=== PATIENT | female | born 1965 | race Caucasian/White ===

== ENCOUNTER 2017-10-01 17:03 | Emergency (ER) | payer OTHER ==
[2017-10-01 17:20] VITALS: BP 120/88; PULSE 102; TEMP 98.5; BMI 19.2
--- NOTE | 2017-10-01 17:38 | PDOC ---
History of Present Illness - General History Source: Patient Exam Limitations: No Limitations - History of Present Illness Initial Comments: 10/01/17 18:08 The patient is a 51 year old female, with no significant past medical history on an antiviral (Valtrex), who presents to the emergency department s/p squirrel bite with, a puncture to the left 4th digit and associated pain. As per patient, she saw a squirrel in her backyard which she assumed as . She poked up a stick multiple times and it did not move. She went to grape picker the squirrel to place it into a box when the squirrel bit her finger through her glove. She reports the squirrel latched onto her finger before she was capable of getting it off. She reports washing the finger with soap and water profusely prior to coming to the ED. She reports her pain to have been slightly alleviated from the initial bite. She is unaware of her last tetanus shot. She denies recent fevers, chills, headache or dizziness. She denies recent nausea, vomit, diarrhea or constipation. She denies recent dysuria, frequency, urgency or hematuria. She denies recent chest pain or shortness of breath. Allergies: Sulfa Past surgical history: None reported. Social history: Smoker. Social EtOH use. Denies recreational drug use. <Isabel Chan - Last Filed: 10/01/17 18:08> <Michael Rubio - Last Filed: 10/03/17 09:47> - General Chief Complaint: Bite Stated Complaint: SQUIRREL BITE Time Seen by Provider: 10/01/17 17:25 Past History <Isabel Chan - Last Filed: 10/01/17 18:08> - Past Medical History COPD: No Other medical history: ENDOMETRIOSIS OSTEOPENIA OSTEOPOROSIS - Surgical History Appendectomy: Yes Cholecystectomy: Yes - Immunization History Immunization Up to Date: No - Suicide/Smoking/Psychosocial Hx Smoking History: Current every day smoker Have you smoked in the past 12 months: Yes Number of Cigarettes Smoked Daily: 20 Information on smoking cessation initiated: Yes 'Breaking Loose' booklet given: 10/01/17 Hx Alcohol Use: Yes (SOCIAL) Drug/Substance Use Hx: No Substance Use Type: Alcohol <Michael Rubio - Last Filed: 10/03/17 09:47> - Past Medical History Allergies/Adverse Reactions: Allergies Allergy/AdvReac Type Severity Reaction Status Date / Time Sulfa (Sulfonamide Allergy Intermediate Hives Verified 10/01/17 17:11 Antibiotics) Home Medications: Ambulatory Orders Cephalexin Monohydrate [Keflex] 500 mg PO Q6H #30 capsule 10/01/17 Valacyclovir HCl [Valtrex] 500 mg PO DAILY 10/01/17 Review of Systems - Review of Systems Able to Perform ROS?: Yes Comments:: 10/01/17 18:09 CONSTITUTIONAL: Absent: fever, no chills, no fatigue EYES: Absent: visual changes ENT: Absent: ear pain, no sore throat CARDIOVASCULAR: Absent: chest pain, no palpitations RESPIRATORY: Absent: cough, no SOB GI: Absent: abdominal pain, no nausea, no vomiting, no constipation, no diarrhea GENITOURINARY: Absent: dysuria, no frequency, no hematuria MUSKULOSKELETAL: Absent: back pain, no arthralgia, no myalgia SKIN: Present: Puncture to the left hand 4th digit. Absent: rash NEURO: Absent: headache <Isabel Chan - Last Filed: 10/01/17 18:08> *Physical Exam - Vital Signs Last Vital Signs Temp Pulse Resp BP Pulse Ox 98.5 F 102 H 16 120/88 97 10/01/17 17:05 10/01/17 17:05 10/01/17 17:05 10/01/17 17:05 10/01/17 17:05 <Isabel Chan - Last Filed: 10/01/17 18:08> - Vital Signs Last Vital Signs Temp Pulse Resp BP Pulse Ox 98.5 F 102 H 16 120/88 97 10/01/17 17:05 10/01/17 17:05 10/01/17 17:05 10/01/17 17:05 10/01/17 17:05 <Michael Rubio - Last Filed: 10/03/17 09:47> Medical Decision Making - Medical Decision Making 10/01/17 17:38 Patient found what she thought was a squirrel in her yard, and when she tried to remove it, it bit her finger. Small puncture wound was noted the radial aspect of the PIP joint. There was no swelling erythema or inflammation present. There was full range of motion. There was no distal numbness tingling pain or weakness of the finger. The wound was extensively scrubbed with soap and water, then with normal saline , and bacitracin was applied with a Band-Aid. The finger was splinted to prevent excessive movement and minimize the chance of infection Tetanus immunization was administered. According to literature from the health department, rabies prophylaxis is not indicated. However, an attempt was made to contact the health department in [phone]. There were recorded instructions that if this was an animal bite, to fax the information [phone], which was done. There was no option to leave a detailed message or to speak to someone military professional. The patient contacted the local police, explained the incident, and asked them to find the animal and take it to be appropriate facility for analysis. 10/01/17 17:43 Although the puncture appears to be minor, its location of her finger joint suggest that antibiotic be prescribed. First dose given and a prescription sent to her pharmacy. She will follow up with the health Department as directed. Fully ambulatory in no pain or other distress upon discharge to follow-up as directed. <Michael Rubio - Last Filed: 10/03/17 09:47> *DC/Admit/Observation/Transfer - Attestations Scribe Attestion: 10/01/17 18:09 Documentation prepared by Isabel Chan, acting as medical billing associate for Michael Pond MD. <Isabel Chan - Last Filed: 10/01/17 18:08> <Michael Rubio - Last Filed: 10/03/17 09:47> Diagnosis at time of Disposition: Animal bite wound - Discharge Dispostion Disposition: HOME Condition at time of disposition: Stable - Prescriptions Prescriptions: Cephalexin Monohydrate [Keflex] 500 mg PO Q6H #30 capsule
[2017-10-01] MEDS ORDERED: CEPHALEXIN MONOHYDRATE 500 MG CAPSULE (UD) PO ONE (18:25)
[2017-10-01] MEDS ORDERED: DIPHTH,PERTUSS(ACELL),TET 0.5 ML DISP.SYRIN IM ONE (18:25)
[2017-10-01] MEDS ORDERED: CEPHALEXIN MONOHYDRATE 500 MG CAPSULE (UD) ONE (18:50)
== END 2017-10-01 19:10 | disposition home or self-care (01) ==
LOC: FER 17:03
PROC: 3E0234Z Introduction of Serum, Toxoid and Vaccine into Muscle, Percutaneous Approach (ICD-10-PCS; principal; 2017-10-01)
DX: S61.255A Open bite of left ring finger without damage to nail, initial encounter (principal); W53.21XA Bitten by squirrel, initial encounter; Y93.89 Activity, other specified; Y92.007 Garden or yard of unspecified non-institutional (private) residence as the place of occurrence of the external cause
CPT/HCPCS: 90715; 99281-25

== ENCOUNTER 2018-05-29 10:06 | Emergency (ER) | payer OTHER ==
[2018-05-29 10:12] VITALS: BP 135/75; PULSE 94; TEMP 98.5; BMI 18.4
--- NOTE | 2018-05-29 10:32 | PDOC ---
History of Present Illness - General Chief Complaint: Pain, Acute Stated Complaint: LBP/RIGHT LEG PAIN Time Seen by Provider: 05/29/18 10:11 Past History - Past Medical History Allergies/Adverse Reactions: Allergies Allergy/AdvReac Type Severity Reaction Status Date / Time Sulfa (Sulfonamide Allergy Intermediate Hives Verified 05/29/18 10:07 Antibiotics) Home Medications: Ambulatory Orders Valacyclovir HCl [Valtrex] 500 mg PO DAILY 10/01/17 COPD: No - Surgical History Appendectomy: Yes Cholecystectomy: Yes - Immunization History Immunization Up to Date: No - Suicide/Smoking/Psychosocial Hx Smoking History: Former smoker Have you smoked in the past 12 months: Yes Number of Cigarettes Smoked Daily: 20 If you are a former smoker, when did you quit?: 02/13 Information on smoking cessation initiated: No 'Breaking Loose' booklet given: 10/01/17 Hx Alcohol Use: Yes Drug/Substance Use Hx: No Substance Use Type: Alcohol *Physical Exam - Vital Signs Last Vital Signs Temp Pulse Resp BP Pulse Ox 98.5 F 94 H 18 135/75 100 05/29/18 10:06 05/29/18 10:06 05/29/18 10:06 05/29/18 10:06 05/29/18 10:06 Moderate Sedation - Procedure Monitoring Vital Signs: Procedure Monitoring Vital Signs Temperature 98.5 F 05/29/18 10:06 Pulse Rate 94 H 05/29/18 10:06 Respiratory Rate 18 05/29/18 10:06 Blood Pressure 135/75 05/29/18 10:06 O2 Sat by Pulse Oximetry (%) 100 05/29/18 10:06 *DC/Admit/Observation/Transfer - Discharge Dispostion Condition at time of disposition: Stable - Referrals Referrals: Emily Garcia MD [Primary Care Provider] - - Patient Instructions - Post Discharge Activity
--- NOTE | 2018-05-29 10:39 | PDOC ---
History of Present Illness - History of Present Illness Initial Comments: 05/29/18 10:33 52 yo F with h/o endometriosis, significant pmh ,on Valtrex who p/w lower back pain. Patient with sharp, spasmodic, intermittent, acute on chronic lower back pain beginning x 5 days beginning (05/24/18 ) .Pain radiates down BL posterior thigh .Associated with BL numbness and tingling down [id number] thighs .Patient reports difficulty with urination x 4 days ago, no improved .Now with acute rectal tingling this AM. Also reports right sided foot weakness , and difficult with ambulation d/t pain, and weakness. Ambulates with walker .Patient seen in Urgent care facility x 4 days ago [employer]. At urgent care visit patient received Toradol, Ibuprofen, Prednisone day 3. Patient denies N/V, F,C, CP, SOB, urinary complaints, abdominal pain, hematuria ,BPR, diarrhea, constipation, lightheadedness, LOC, fall, head trauma, back trauma, neck trauma. PMHx: as noted above. Surgical: appendectomy, laparoscopy x 7, tonsillectomy, cholecystectomy, total hysterectomy. ROS: as noted SHx: tobacco cessation x 2 months following 20 year PPD tobacco use. Denies IVDA . Allergies: Sulfa medication <Vince Daley - Last Filed: 05/29/18 14:57> <Claudio Singletary - Last Filed: 05/29/18 15:18> - General Chief Complaint: Pain, Acute Stated Complaint: LBP/RIGHT LEG PAIN Time Seen by Provider: 05/29/18 10:11 Past History - Past Medical History COPD: No - Surgical History Appendectomy: Yes Cholecystectomy: Yes - Immunization History Immunization Up to Date: No - Suicide/Smoking/Psychosocial Hx Smoking History: Former smoker Have you smoked in the past 12 months: Yes Number of Cigarettes Smoked Daily: 20 If you are a former smoker, when did you quit?: 02/13 Information on smoking cessation initiated: No 'Breaking Loose' booklet given: 10/01/17 Hx Alcohol Use: Yes Drug/Substance Use Hx: No Substance Use Type: Alcohol <Vince Daley - Last Filed: 05/29/18 14:57> <Claudio Singletary - Last Filed: 05/29/18 15:18> - Past Medical History Allergies/Adverse Reactions: Allergies Allergy/AdvReac Type Severity Reaction Status Date / Time Sulfa (Sulfonamide Allergy Intermediate Hives Verified 05/29/18 10:07 Antibiotics) Home Medications: Ambulatory Orders Valacyclovir HCl [Valtrex] 500 mg PO DAILY 10/01/17 Review of Systems - Review of Systems Comments:: 05/29/18 11:17 GENERAL/CONSTITUTIONAL: No fever or chills. No weakness. HEAD, EYES, EARS, NOSE AND THROAT: No change in vision. No ear pain or discharge. No sore throat. CARDIOVASCULAR: No chest pain or shortness of breath RESPIRATORY: No cough, wheezing, or hemoptysis. GASTROINTESTINAL: No nausea, vomiting, diarrhea or constipation. GENITOURINARY: No dysuria, frequency, or change in urination. MUSCULOSKELETAL: + Back pain. No joint or muscle swelling or pain. No neck pain. SKIN: No rash NEUROLOGIC: No headache, vertigo, loss of consciousness, or change in strength/ sensation. ENDOCRINE: No increased thirst. No abnormal weight change HEMATOLOGIC/LYMPHATIC: No anemia, easy bleeding, or history of blood clots. ALLERGIC/IMMUNOLOGIC: No hives or skin allergy. <Vince Daley - Last Filed: 05/29/18 14:57> *Physical Exam - Vital Signs Last Vital Signs Temp Pulse Resp BP Pulse Ox 98.5 F 94 H 18 135/75 100 05/29/18 10:06 05/29/18 10:06 05/29/18 10:06 05/29/18 10:06 05/29/18 10:06 - Physical Exam Comments: 05/29/18 11:18 GENERAL: Awake, alert, and fully oriented, in no acute distress HEAD: No signs of trauma, normocephalic, atraumatic EYES: PERRLA, EOMI, sclera anicteric, conjunctiva clear ENT: Hearing grossly normal, nares patent, oropharynx clear without exudates. Moist mucosa NECK: Normal ROM, supple, no lymphadenopathy, JVD, or masses LUNGS: No distress, speaks full sentences, clear to auscultation bilaterally HEART: Regular rate and rhythm, normal S1 and S2, no murmurs, rubs or gallops, peripheral pulses normal and equal bilaterally. ABDOMEN: Soft, nontender, normoactive bowel sounds. No guarding, no rebound. No masses BACK: + Sacral midline ttp. + Lumbar paraspinal ttp. Absent bony deformity, stepoff, skin change, EXTREMITIES : Normal inspection, Normal range of motion, no edema. No clubbing or cyanosis. NEUROLOGICAL: + Right sided limping gait. RLE Knee extension 3/5, diminished plantarflexion/dorsiflexion. + LLE 4/5 knee extension. LLE plantarflexion and dorsiflexion intact. Cranial nerves II through XII grossly intact. Normal speech, no focal sensory deficits. Rectal tone intact, with intact perineum sensation. SKIN: Warm, Dry, normal turgor, no rashes or lesions noted <Vince Daley - Last Filed: 05/29/18 14:57> - Vital Signs Last Vital Signs Temp Pulse Resp BP Pulse Ox 98.5 F 94 H 18 135/75 100 05/29/18 10:06 05/29/18 10:06 05/29/18 10:06 05/29/18 10:06 05/29/18 10:06 <Claudio Singletary - Last Filed: 05/29/18 15:18> Moderate Sedation - Procedure Monitoring Vital Signs: Procedure Monitoring Vital Signs Temperature 98.5 F 05/29/18 10:06 Pulse Rate 94 H 05/29/18 10:06 Respiratory Rate 18 05/29/18 10:06 Blood Pressure 135/75 05/29/18 10:06 O2 Sat by Pulse Oximetry (%) 100 05/29/18 10:06 <Vince Daley - Last Filed: 05/29/18 14:57> - Procedure Monitoring Vital Signs: Procedure Monitoring Vital Signs Temperature 98.5 F 05/29/18 10:06 Pulse Rate 94 H 05/29/18 10:06 Respiratory Rate 18 05/29/18 10:06 Blood Pressure 135/75 05/29/18 10:06 O2 Sat by Pulse Oximetry (%) 100 05/29/18 10:06 <Claudio Singletary - Last Filed: 05/29/18 15:18> ED Treatment Course - Medications Given in the ED: ED Medications Discontinued Medications Generic Name Dose Route Start Last Admin Trade Name Freq PRN Reason Stop Dose Admin Ketorolac Tromethamine 60 mg 05/29/18 11:19 05/29/18 11:30 Toradol Injection - IM 05/29/18 11:20 60 mg ONCE ONE Administration <Claudio Singletary - Last Filed: 05/29/18 15:18> Medical Decision Making - Medical Decision Making 05/29/18 11:13 52 yo F with h/o endometriosis, significant pmh ,on Valtrex who p/w lower back pain, rectal tingling, and urinary retention( now resolved). VSS, AF. + Right sided limping gait. RLE Knee extension 3/5, diminished plantarflexion/ dorsiflexion. + LLE 4/5 knee extension. LLE plantarflexion and dorsiflexion. Intact rectal tone. DDx includes cauda equina, disc fracture, subluxation, herniation. Absent alarm findings, N/V, F/C, flank pain, hematuria. Low suspicion pyelonephritis, AAA, Ao dissection, epidural abscess. Ed Course: 05/29/18 11:[address] Torad[address] LUMBAR SPINE 05/29/18 13:20 CT L SPINE: Mild L1-L2 retrolithesis, mild facet joint arthropathy, anterior spondylosis, mild circumferential bulge of disc. L4-L5 posterior annular bulge. No spinal stenosis, compression deformities. 05/29/18 13:[address] Guan Neurology cushion gum applicator ([phone]) [phone] ext. Awaiting call back 05/29/18 14:[address] Guan Neurology cushion gum applicator, awaiting call back. 05/29/18 14:[address] L SPINE unremarkable, and pt. to f/u with him outpt. <Vince Daley - Last Filed: 05/29/18 14:57> *DC/Admit/Observation/Transfer - Discharge Dispostion Decision to Admit order: No - Attestations Physician Attestion: 05/29/18 14:56 I attest to the information provided in this note. <Vince Daley - Last Filed: 05/29/18 14:57> <Claudio Singletary - Last Filed: 05/29/18 15:18> Diagnosis at time of Disposition: Back pain Qualifiers: Back pain location: low back pain Chronicity: chronic Back pain laterality: unspecified Sciatica presence: with sciatica Sciatica laterality: bilateral sciatica Qualified Code(s): M54.41 - Lumbago with sciatica, right side - Discharge Dispostion Disposition: HOME Condition at time of disposition: Stable - Referrals Referrals: Emily Garcia MD [Primary Care Provider] - Rolando Guan MD [Staff Physician] - - Patient Instructions Printed Discharge Instructions: DI for Back Pain With Sciatica Additional Instructions: Please return to the emergency department with any new or worsening symptoms or concerns. Lumbar spine was unremarkable Please follow up with your Neurology within [address] Guan/Neurology([phone]) [phone] ext. for follow up visit. - Post Discharge Activity Forms/Work/School Notes: Back to Work
--- NOTE | 2018-05-29 10:54 | PDOC ---
Attending Attestation - Resident Resident Name: EdiSrinivasVince - ED Attending Attestation I have performed the following: I have examined & evaluated the patient, The case was reviewed & discussed with the resident, I agree w/resident's findings & plan, Exceptions are as noted - HPI HPI: 05/29/18 10:44 52y F hx of endometriosis, cervical spine stenosis, presents with lower back pain. Patient states that she her back has been fine recently, although she sometimes deals with some mild upper back pain. Patient states that around she woke up with lower back pain she went to urgent care at the prescriptions was treated for her pain however noted that her pain has been increasing. The patient also notes some mild weakness in her right foot as well as some intermittent tingling around her perianal region non-currently. Patient denies any urinary, bowel incontinence, fever, chills, recent trauma, heavy lifting. The patient did to find a neurologist as an outpatient however the available appointment is a month away. The patient had prior imaging of her back in the remote past but none recently. smoking - 20 pack year history deneis IVDU GENERAL: The patient is awake, alert, and fully oriented, Nontoxic - in no acute distress. HEAD: Normocephalic, atraumatic. EYES: extraocular movements intact, sclera anicteric, conjunctiva clear. ENT: Normal voice, Moist mucous membranes. NECK: Normal range of motion, supple LUNGS: Breath sounds equal, clear to auscultation bilaterally. No wheezes, no rhonchi, no rales. HEART: Regular rate and rhythm, normal S1 and S2 without murmur, rub or gallop. ABDOMEN: Soft, nontender, normoactive bowel sounds. No guarding, no rebound. . No CVA tenderness EXTREMITIES: Normal range of motion, no edema. No clubbing or cyanosis. No cords, erythema, or tenderness. NEUROLOGICAL: No facial assymetry, Normal speech, sensation symmetric in b/l feet/LE, 5-/5 in R plantar/dorsiflexion, 5-/5 R hip flexion (although no drift) , 5/5 in LLE throughout. BACK: minimal lumbar tenderness in lower back, mild R lumbar paraspinal tenderness, no fluctuance, erythema, induration PSYCH: Normal mood, normal affect. SKIN: Warm, Dry, normal turgor, concern for disk herniation, exam equivocal - as pts motor exam incosnsitent rectal tone intact, no saddle anesthesia will obtain CT will reassess - Physicial Exam PE: 05/29/18 13:36 see above - Medical Decision Making 05/29/18 13:36 CT results reviewed no signficant nerve impingement noted will [facility] neurology - anticipate outpatient fu with neuro for further management of her back pain/symptoms
[2018-05-29] MEDS ORDERED: KETOROLAC TROMETHAMINE 60 MG/2 ML VIAL IM ONE (11:19)
[2018-05-29] MEDS ORDERED: KETOROLAC TROMETHAMINE 60 MG/2 ML VIAL ONE (11:21)
== END 2018-05-29 15:12 | disposition home or self-care (01) ==
LOC: FER 10:06
PROC: 3E0233Z Introduction of Anti-inflammatory into Muscle, Percutaneous Approach (ICD-10-PCS; principal; 2018-05-29)
DX: M54.41 Lumbago with sciatica, right side (principal); Z87.891 Personal history of nicotine dependence
CPT/HCPCS: 72131-TC; 96372; 99282-25

== ENCOUNTER 2022-04-26 17:50 | Emergency (ER) | payer OTHER ==
[2022-04-26 18:10] VITALS: BP 125/83; PULSE 88; RESP 16; TEMP 99; BMI 22.6
[2022-04-26] MEDS ORDERED: ACETAMINOPHEN WITH CODEINE 300MG/30MG TABLET PO ONE (18:18)
[2022-04-26] MEDS ORDERED: ACETAMINOPHEN WITH CODEINE 300MG/30MG TABLET ONE (18:21)
== END 2022-04-26 20:01 | disposition home or self-care (01) ==
LOC: FER 17:50
DX: M79.601 Pain in right arm (principal)
CPT/HCPCS: 93971; 99283-25

== ENCOUNTER 2022-06-16 14:22 | Observation (INO) | payer OTHER ==
[2022-06-16] MEDS ORDERED: ACETAMINOPHEN 1000 MG/100 ML BAG IVPB ONE (14:35)
[2022-06-16] MEDS ORDERED: SODIUM CHLORIDE 0.9% 1000 ML INFUS.BAG IV ONE (14:35)
[2022-06-16] MEDS ORDERED: ACETAMINOPHEN INJECTION 100 ML IVPB ONE (14:43)
[2022-06-16 14:53] LABS: HEMATOCRIT 39.3 % (32.4-45.2); HEMOGLOBIN 13.2 G/dL (10.7-15.3); MCH 31.4 pg (25.7-33.7); MCHC 33.6 g/dl (32.0-36.0); MEAN CELL VOLUME 93.3 fl (80-96); MEAN PLT VOLUME 7.7 fl (7.5-11.1); PLATELET COUNT 291.4 10^3/uL (134-434); RBC 4.21 10^6/uL (3.60-5.2); RDW 13.6 % (11.6-15.6); WHITE BLOOD COUNT 7.9 10^3/uL (4.0-10.8)
[2022-06-16 15:10] LABS: ALBUMIN 3.8 g/dl (3.4-5.0); BILIRUBIN,TOTAL 0.6 mg/dl (0.2-1); CALCIUM 9.1 mg/dl (8.5-10); CREATININE 0.7 mg/dl (0.55-1.3); TOT PROT 6.2 g/dl (6.4-8.2)
[2022-06-16 16:51] LABS: INR 1.06 (0.83-1.09); PROTHROMBIN TIME (PATIENT) 12.2 SEC (9.7-13.0)
[2022-06-16 16:54] LABS: ACTIVATED PTT 34.5 SECONDS (25.2-36.5)
[2022-06-16] MEDS ORDERED: ENOXAPARIN NA (PORCINE) 60 MG/0.6 ML DISP.SYRIN SQ SCH (17:15)
[2022-06-16] MEDS ORDERED: ENOXAPARIN NA (PORCINE) 60 MG/0.6 ML DISP.SYRIN SQ ONE (17:23)
[2022-06-16] MEDS ORDERED: ATORVASTATIN CA 80 MG TABLET (FP) PO SCH (22:00)
[2022-06-16] MEDS: ACETAMINOPHEN 1000 MG/100 ML BAG IVPB PRN (22:15)
[2022-06-16] MEDS ORDERED: HYDROmorphone HCl 2 MG/ML VIAL IVPB ONE (22:35)
[2022-06-16 22:56] VITALS: BMI 25.0
[2022-06-16] MEDS ORDERED: ALBUTEROL SO4 HFA INHALER IH PRN (23:14)
[2022-06-16] MEDS ORDERED: TIOTROPIUM BROMIDE 2.5 MCG (SPIRIVA) RESPIMAT INHALER IH SCH (23:15)
[2022-06-17] MEDS: DOCUSATE SODIUM 100 MG CAPSULE (FP) PO SCH ×2 (00:58→22:05)
[2022-06-17] MEDS: HYDROmorphone HCl 2 MG/ML VIAL IVPB PRN ×2 (03:00→09:29)
[2022-06-17] MEDS: ACETAMINOPHEN 1000 MG/100 ML BAG IVPB PRN (05:59)
[2022-06-17 08:24] LABS: INR 1.08 (0.83-1.09); PROTHROMBIN TIME (PATIENT) 12.4 SEC (9.7-13.0)
[2022-06-17 08:27] LABS: ACTIVATED PTT 37.1 SECONDS (25.2-36.5)
[2022-06-17 08:40] LABS: ALBUMIN 3.5 g/dl (3.4-5.0); BILIRUBIN,TOTAL 0.6 mg/dl (0.2-1); CALCIUM 8.8 mg/dl (8.5-10); CREATININE 0.9 mg/dl (0.55-1.3); MAGNESIUM 1.9 mg/dL (1.8-2.4); PHOSPHOROUS 4.4 mg/dl (2.5-4.9); TOT PROT 5.8 g/dl (6.4-8.2)
[2022-06-17] MEDS: PANTOPRAZOLE 40 MG TABLET PO SCH (09:29)
[2022-06-17] MEDS: DULoxetine HCL 30 MG CAPSULE.DR PO SCH (09:29)
[2022-06-17] MEDS: MULTIVITAMINS (DAILY MVI) TABLET (FP) PO SCH (09:29)
[2022-06-17] MEDS: ENOXAPARIN NA (PORCINE) 60 MG/0.6 ML DISP.SYRIN SQ SCH ×2 (09:30→22:06)
[2022-06-17] MEDS ORDERED: BUDESONIDE/FORMETEROL FUMARATE 160/4.5 mcg INHALER IH SCH (10:00)
[2022-06-17] MEDS ORDERED: METOPROLOL TARTRATE 25 MG TABLET (FP) PO SCH (10:00)
[2022-06-17 10:20] LABS: HEMATOCRIT 38.4 % (32.4-45.2); HEMOGLOBIN 12.4 GM/dL (10.7-15.3); MCH 30.7 pg (25.7-33.7); MCHC 32.4 g/dl (32.0-36.0); MEAN CELL VOLUME 94.8 fl (80-96); MEAN PLT VOLUME 8.2 fl (7.5-11.1); PLATELET COUNT 299 10^3/uL (134-434); RBC 4.05 M/mm3 (3.60-5.2); RDW 13.3 % (11.6-15.6); WHITE BLOOD COUNT 6.3 K/mm3 (4.0-10.0)
[2022-06-17] MEDS: TIOTROPIUM BROMIDE 2.5 MCG (SPIRIVA) RESPIMAT INHALER IH SCH (10:59)
[2022-06-17] MEDS: FLUTICASONE PROP 0.05% 16 GM NASAL SPRAY NS SCH (10:59)
[2022-06-17] MEDS: BUDESONIDE/FORMETEROL FUMARATE 160/4.5 mcg INHALER IH SCH ×3 (10:59→22:06)
[2022-06-17] MEDS ORDERED: ACETAMINOPHEN 325 MG TABLET (FP) PO PRN (12:15)
[2022-06-17] MEDS ORDERED: oxyCODONE HCL 5 MG TABLET PO PRN (12:15)
[2022-06-17] MEDS: ATORVASTATIN CA 10 MG TABLET (FP) PO SCH (22:06)
[2022-06-18] MEDS: FLUTICASONE PROP 0.05% 16 GM NASAL SPRAY NS SCH (09:25)
[2022-06-18] MEDS: BUDESONIDE/FORMETEROL FUMARATE 160/4.5 mcg INHALER IH SCH (09:25)
[2022-06-18] MEDS: TIOTROPIUM BROMIDE 2.5 MCG (SPIRIVA) RESPIMAT INHALER IH SCH (09:25)
[2022-06-18] MEDS: PANTOPRAZOLE 40 MG TABLET PO SCH (09:26)
[2022-06-18] MEDS: MULTIVITAMINS (DAILY MVI) TABLET (FP) PO SCH (09:26)
[2022-06-18] MEDS: ENOXAPARIN NA (PORCINE) 60 MG/0.6 ML DISP.SYRIN SQ SCH ×2 (09:28→21:10)
[2022-06-18] MEDS: DULoxetine HCL 30 MG CAPSULE.DR PO SCH (09:28)
[2022-06-18 09:44] VITALS: RESP 18
[2022-06-18 10:39] LABS: HEMATOCRIT 35.9 % (32.4-45.2); HEMOGLOBIN 11.9 GM/dL (10.7-15.3); MCH 31.1 pg (25.7-33.7); MCHC 33.1 g/dl (32.0-36.0); MEAN PLT VOLUME 8.2 fl (7.5-11.1); PLATELET COUNT 313 10^3/uL (134-434); RBC 3.82 M/mm3 (3.60-5.2); RDW 13.2 % (11.6-15.6); WHITE BLOOD COUNT 5.8 K/mm3 (4.0-10.0)
[2022-06-18 14:20] LABS: ANISOCYTOSIS 0; MACROCYTOSIS 1+
[2022-06-18] MEDS: PATIENT'S OWN MEDICATION (NON-FORMULARY) (Ubrogepant [Ubrelvy] 100 MG Tablet) PO SCH ×2 (19:37→19:38)
[2022-06-18] MEDS: DOCUSATE SODIUM 100 MG CAPSULE (FP) PO SCH (21:04)
[2022-06-18] MEDS: ATORVASTATIN CA 10 MG TABLET (FP) PO SCH (21:11)
[2022-06-18] MEDS ORDERED: GABAPENTIN 400 MG CAPSULE PO SCH (22:00)
[2022-06-19 08:26] LABS: CALCIUM 8.8 mg/dl (8.5-10); CREATININE 0.7 mg/dl (0.55-1.3)
[2022-06-19 08:59] VITALS: BP 128/78; PULSE 107; TEMP 98.4
[2022-06-19] MEDS: BUDESONIDE/FORMETEROL FUMARATE 160/4.5 mcg INHALER IH SCH ×2 (09:50→09:51)
[2022-06-19] MEDS: PANTOPRAZOLE 40 MG TABLET PO SCH (09:51)
[2022-06-19] MEDS: DULoxetine HCL 30 MG CAPSULE.DR PO SCH (09:51)
[2022-06-19] MEDS: MULTIVITAMINS (DAILY MVI) TABLET (FP) PO SCH (09:51)
[2022-06-19] MEDS: TIOTROPIUM BROMIDE 2.5 MCG (SPIRIVA) RESPIMAT INHALER IH SCH (09:51)
[2022-06-19] MEDS: FLUTICASONE PROP 0.05% 16 GM NASAL SPRAY NS SCH (09:51)
[2022-06-19] MEDS ORDERED: APIXABAN 5 MG TABLET PO SCH (10:00)
[2022-06-19] MEDS ORDERED: LIDOCAINE 5% TOPICAL PATCH TP SCH (10:00)
[2022-06-19] MEDS ORDERED: LIDOCAINE PATCH REMOVAL MC SCH (22:00)
[2022-06-21 10:43] LABS: N-TERMINAL BNP 281.9 pg/ml (5-125)
== END 2022-06-19 13:48 | disposition home or self-care (01) ==
LOC: FER 14:22 → FM/S 17:33
PROVIDERS: ADMIT Internal Medicine; ATTEND Nurse Practitioner Family
PROC: 3E033NZ Introduction of Analgesics, Hypnotics, Sedatives into Peripheral Vein, Percutaneous Approach (ICD-10-PCS; principal; 2022-06-16)
PROC: 3E033GC Introduction of Other Therapeutic Substance into Peripheral Vein, Percutaneous Approach (ICD-10-PCS; 2022-06-16)
PROC: 3E0337Z Introduction of Electrolytic and Water Balance Substance into Peripheral Vein, Percutaneous Approach (ICD-10-PCS; 2022-06-16)
DX: R07.81 Pleurodynia (principal); Z86.711 Personal history of pulmonary embolism; K21.9 Gastro-esophageal reflux disease without esophagitis; F32.9 Major depressive disorder, single episode, unspecified; M79.7 Fibromyalgia; G43.909 Migraine, unspecified, not intractable, without status migrainosus; J44.9 Chronic obstructive pulmonary disease, unspecified; W18.39XA Other fall on same level, initial encounter; M48.02 Spinal stenosis, cervical region; Y93.89 Activity, other specified; Y92.008 Other place in unspecified non-institutional (private) residence as the place of occurrence of the external cause; Z79.01 Long term (current) use of anticoagulants; Z87.891 Personal history of nicotine dependence; Z86.718 Personal history of other venous thrombosis and embolism; Z88.2 Allergy status to sulfonamides
CPT/HCPCS: 0241U-QW; 36415; 71275-TC; 74177-TC; 80048; 80053; 81241; 83735; 83880; 84100; 85025; 85027; 85300; 85610; 85730; 86038; 86850; 86900; 86901; 93005; 93306-TC; 93970-TC; 99285-25; G0378; Q9967

== ENCOUNTER 2023-06-04 19:09 | Emergency (ER) | payer OTHER ==
[2023-06-04 19:14] VITALS: BMI 24.1
[2023-06-04] MEDS ORDERED: morphine CARPU-JECT 2 MG/1 ML DISP.SYRIN IVPUSH ONE (19:32)
[2023-06-04] MEDS ORDERED: SODIUM CHLORIDE 1,000 ML IV ONE (19:32)
[2023-06-04 20:27] LABS: HEMATOCRIT 41.9 % (32.4-45.2); HEMOGLOBIN 14.3 G/dL (10.7-15.3); MCH 31.4 pg (25.7-33.7); MCHC 34.2 g/dl (32.0-36.0); MEAN CELL VOLUME 91.8 fl (80-96); MEAN PLT VOLUME 8.5 fl (7.5-11.1); PLATELET COUNT 266.3 10^3/uL (134-434); RBC 4.56 10^6/uL (3.60-5.2); RDW 13.9 % (11.6-15.6); WHITE BLOOD COUNT 9.2 10^3/uL (4.0-10.8)
[2023-06-04 20:28] LABS: INR 1.56 (0.83-1.09)
[2023-06-04 20:39] LABS: ALBUMIN 4.5 g/dl (3.4-5.0); BILIRUBIN,TOTAL 0.3 mg/dl (0.2-1); CALCIUM 9.4 mg/dl (8.5-10.1); CREATININE 1.1 mg/dl (0.6-1.3); MAGNESIUM 1.9 mg/dL (1.8-2.4); PHOSPHOROUS 3.6 (2.5-4.9); POTASSIUM 3.9 mmol/L (3.5-5.1); TOT PROT 6.5 g/dl (6.4-8.2)
[2023-06-04 21:58] VITALS: BP 114/78; PULSE 77; RESP 16; TEMP 97.7
== END 2023-06-04 23:04 | disposition home or self-care (01) ==
LOC: FER 19:09
PROC: 3E033NZ Introduction of Analgesics, Hypnotics, Sedatives into Peripheral Vein, Percutaneous Approach (ICD-10-PCS; principal; 2023-06-04)
PROC: 3E0337Z Introduction of Electrolytic and Water Balance Substance into Peripheral Vein, Percutaneous Approach (ICD-10-PCS; 2023-06-04)
DX: M25.511 Pain in right shoulder (principal); M54.6 Pain in thoracic spine
CPT/HCPCS: 36415; 71275-TC; 80053; 83735; 84100; 85027; 85610; 93005; 99285-25; Q9967